=== PATIENT | female | born 1975 | race Caucasian/White ===

== ENCOUNTER 2016-11-04 12:39 | Emergency (ER) | payer BC ==
[~2016-11-04 12:39] MED LIST: CELEXA20 PO; CLARITD PO; DITRO5 PO; SIN10 PO; ULTRAM50 PO
[2016-11-04 13:21] LABS: BASOPHILS 0.4 %; BASOPHILS ABSOLUTE 0.03 10/3/uL (0.0-0.16); EOSINOPHILS 0.9 %; EOSINOPHILS ABSOLUTE 0.06 10/3/uL (0.0-0.53); ER CBC TAT 0 Hrs 07 Mins; HEMOGLOBIN 13.3 g/dL (12.0-16.0); IMMATURE GRANULOCYTES 0.1 %; IMMATURE GRANULOCYTES ABSOLUTE 0.01 10/3/uL (0.0-0.11); LYMPHOCYTES 25.8 %; LYMPHOCYTES ABSOLUTE 1.76 10/3/uL (0.67-4.30); MEAN CORPUS HGB CONC 35.2 g/dL (32.0-36.0); MEAN CORPUSCULAR HEMOGLOB 31.5 pg (26.0-34.0); MEAN CORPUSCULAR VOLUME 89.6 fL (80-100); MEAN PLATELET VOLUME 8.8 fL (9.2-13.0); MONOCYTES ABSOLUTE 0.41 10/3/uL (0.21-1.20); NEUTROPHILS 66.8 %; NEUTROPHILS ABSOLUTE 4.55 10/3/uL (2.02-8.40); PLATELET COUNT 333 10/3/uL (150-400); RBC DISTRIBUTION WIDTH 11.8 % (12.0-16.0); RED CELL COUNT 4.22 10/6/uL (4.0-5.6); WHITE BLOOD CELLS 6.8 10/3/uL (4.5-10.5)
[2016-11-04 13:22] LABS: HEMATOCRIT 37.8 % (36.0-48.0)
[2016-11-04 13:23] LABS: MANUAL DIFF NO %
[2016-11-04 13:29] LABS: ASCORBIC ACID (UR NOT ORDER) NEG (NEG); BILIRUBIN, URINE NEGATIVE (NEG); ER URINALYSIS TAT 0 Hrs 18 Mins; KETONE, URINE NEGATIVE (NEG); LEUKOCYTE ESTERASE(NOT OR NEG (NEG); WBC (NOT ORDERED) (RFLEX) < 1 (0-5)
[2016-11-04 13:30] LABS: NITRITE (URINE) NEG (NEG)
[2016-11-04 13:34] LABS: ACETAMINOPHEN LEVEL (TYLENOL) 18.3 MCG/ML (10.0-20.0); CALCIUM, SERUM 8.5 MG/DL (8.5-10.4); CHLORIDE, SERUM 105 MMOL/L (96-112); CO2 (CARBON DIOXIDE) 26 MMOL/L (24-34); CREATININE 0.86 MG/DL (0.55-1.02); GFR AFRICAN AMERICAN 97 ML/MIN (>=60); GFR NON AFRICAN AMERICAN 84 ML/MIN (>=60); POTASSIUM, SERUM 3.6 MMOL/L (3.5-5.3); SODIUM, SERUM 141 MMOL/L (135-148)
[2016-11-04 13:35] LABS: ALCOHOL < 10 MG/DL (0); BUN (BLOOD UREA NITROGEN) 5 MG/DL (6-23); GLUCOSE, SERUM 116 MG/DL (60-99); SALICYLATE < 1.7 MG/DL (-)
[2016-11-04 13:46] LABS: AMPHETAMINES (NOT ORD) POS (NEG); BENZODIAZEPINES (NOT ORD) NEG (NEG); COCAINE (NOT ORDERED) NEG (NEG); PHENCYCLIDINE(PCP) NEG (NEG)
[2016-11-04 13:47] LABS: BARBITURATES (NOT ORDERED NEG (NEG); CANNABINOIDS (THC) NEG (NEG); OPIATES POS (NEG); TRICYCLICS NEG (NEG)
== END 2016-11-04 14:55 | disposition home or self-care (01) ==
LOC: ER 12:39
PROVIDERS: Nurse Practitioner
DX: F19.10 Other psychoactive substance abuse, uncomplicated (principal); K21.9 Gastro-esophageal reflux disease without esophagitis; Z79.899 Other long term (current) drug therapy
CPT/HCPCS: 80048; 80305; 80307; 81001; 85025; 93005; 99284